=== PATIENT | female | born 1965 | race Two or more races ===

== ENCOUNTER 2017-11-30 00:33 | Emergency (ER) | payer OTHER ==
[~2017-11-30] VITALS: Ht 149.9 cm; Wt 95.7 kg
[2017-11-30] MEDS ORDERED: CYCL10TA9 PO (00:57)
--- NOTE | 2017-11-30 01:00 | NUR ---
DR. PADILLA AT BEDSIDE FOR MSE.
[2017-11-30 01:22] LABS: BASOPHILS # (AUTO) 0.1 K/uL (0.0-8.0); BASOPHILS % (AUTO) 0.8 % (0.0-2.0); EOSINOPHILS # (AUTO) 0.2 K/uL (0.0-0.7); EOSINOPHILS % (AUTO) 1.9 % (0.0-7.0); HEMATOCRIT 41.8 % (31.2-41.9); HEMOGLOBIN 14.4 g/dL (10.9-14.3); LYMPHOCYTES # (AUTO) 3.6 K/uL (20.0-40.0); LYMPHOCYTES % (AUTO) 37.3 % (20.5-51.5); MEAN CORPUSCULAR HEMOGLOBIN 28.7 uug (24.7-32.8); MEAN CORPUSCULAR HGB CONC 35 g/dL (32.3-35.6); MEAN CORPUSCULAR VOLUME 83.4 fL (75.5-95.3); MONOCYTES # (AUTO) 0.6 K/uL (2.0-10.0); MONOCYTES % (AUTO) 6.7 % (0.0-11.0); NEUTROPHILS # (AUTO) 5.1 K/uL (1.8-8.9); NEUTROPHILS % (AUTO) 53.3 % (38.5-71.5); PLATELET COUNT (AUTO) 231 K/uL (179-408); RED BLOOD CELL COUNT(AUTO) 5.01 MIL/uL (3.63-4.92); WHITE BLOOD COUNT (AUTO) 9.6 K/uL (3.8-11.8)
[2017-11-30 01:29] LABS: CREATININE 0.8 mg/dL (0.6-1.3); POTASSIUM 3.9 mmol/L (3.5-5.1)
[2017-11-30] MEDS ORDERED: KETOROLAC TROMETHAMINE 30 MG INJ ONE (03:03)
--- NOTE | 2017-11-30 03:07 | NUR ---
Patient discharged to home in stable conditon. Written and verbal after care instructions given. Patient verbalizes understanding of instructions. PATIENT LEFT WITH STABLE GAIT.
[2017-11-30 03:09] VITALS: BP 117/79
[2017-11-30] MEDS ORDERED: KETOROLAC TROMETHAMINE 30 MG INJ IM ONE (03:15)
== END 2017-11-30 03:09 | disposition home or self-care (01) ==
LOC: ER 00:47
DX: M54.6 Pain in thoracic spine (principal); R51 Headache; M54.2 Cervicalgia; Z88.0 Allergy status to penicillin
CPT/HCPCS: 36415; 71045; 80048; 84484; 85025; 85651; 93005; 96372; 99285; A4663; J1885; 70030-TC

== ENCOUNTER 2018-08-03 15:50 | Emergency (ER) | payer OTHER ==
[~2018-08-03] VITALS: Ht 149.9 cm; Wt 104.3 kg
[~2018-08-03 15:50] MED LIST: CYCL10TA9 PO
[2018-08-03 16:16] LABS: *BILIRUBIN,URIN NEGATIVE (NEGATIVE); *CLARITY,URINE CLEAR (CLEAR); *COLOR,URINE LIGHT YELLOW (YELLOW); *KETONES,URINE NEGATIVE (NEGATIVE); *URINE HCG, QUAL NEGATIVE (NEGATIVE); *UROBILINOGEN,URINE 0.2 E.U./dl (NORMAL); LEUKOCYTE ESTERASE ,URINE NEGATIVE (NEGATIVE); NITRITE, URINE NEGATIVE (NEGATIVE); UGLUCOSE NEGATIVE (NEGATIVE)
[2018-08-03 16:17] LABS: *BLOOD, URINE TRACE (NEGATIVE)
[2018-08-03 16:28] LABS: RBC,URINE 0-3 /HPF (0-3); SQUAMOUS EPITHELIAL CELL,UR MODERATE /HPF (NONE SEEN); WBC,URINE NONE SEEN /HPF (0-3)
[2018-08-03 17:04] LABS: BASOPHILS # (AUTO) 0.1 K/uL (0.0-8.0); BASOPHILS % (AUTO) 0.6 % (0.0-2.0); EOSINOPHILS # (AUTO) 0.4 K/uL (0.0-0.7); EOSINOPHILS % (AUTO) 3.9 % (0.0-7.0); HEMATOCRIT 41.7 % (31.2-41.9); HEMOGLOBIN 13.8 g/dL (10.9-14.3); LYMPHOCYTES # (AUTO) 2.5 K/uL (20.0-40.0); LYMPHOCYTES % (AUTO) 26.6 % (20.5-51.5); MEAN CORPUSCULAR HEMOGLOBIN 27.1 uug (24.7-32.8); MEAN CORPUSCULAR HGB CONC 33 g/dL (32.3-35.6); MONOCYTES # (AUTO) 0.6 K/uL (2.0-10.0); NEUTROPHILS # (AUTO) 5.7 K/uL (1.8-8.9); NEUTROPHILS % (AUTO) 61.9 % (38.5-71.5); PLATELET COUNT (AUTO) 217 K/uL (179-408); RED BLOOD CELL COUNT(AUTO) 5.09 MIL/uL (3.63-4.92); WHITE BLOOD COUNT (AUTO) 9.3 K/uL (3.8-11.8)
[2018-08-03 17:11] LABS: CREATININE 0.6 mg/dL (0.6-1.3)
[2018-08-03 17:17] LABS: BILIRUBIN,DIRECT 0.1 mg/dL (0.0-0.2); BILIRUBIN,TOTAL 0.4 mg/dL (0.2-1.0); TOTAL PROTEIN, SERUM 7.9 g/dL (6.4-8.2)
--- NOTE | 2018-08-03 18:46 | NUR ---
Patient discharged to home in stable conditon. Written and verbal after care instructions given. Patient verbalizes understanding of instructions.PT WALKS IN STADY GAIT. PT DID NOT REQUEST PAIN MED. PT ACCOMPANIED BY FAMILY MEMBER. COPY OF THE STUDIES PROVIDED FOR FOLLOW UP.
[2018-08-03 18:47] VITALS: BP 119/70
== END 2018-08-03 18:48 | disposition home or self-care (01) ==
LOC: ER 15:51
DX: G89.29 Other chronic pain (principal); R10.9 Unspecified abdominal pain; Z88.0 Allergy status to penicillin; Z79.899 Other long term (current) drug therapy
CPT/HCPCS: 36415; 70030-TC; 83690; 84703; 85025; 87077; 87086; A4663

== ENCOUNTER 2018-09-27 06:41 | Emergency (ER) | payer OTHER ==
[~2018-09-27] VITALS: Ht 149.9 cm; Wt 81.6 kg
--- NOTE | 2018-09-27 07:00 | NUR ---
ERMD at bedside for MSE
[2018-09-27] MEDS ORDERED: [UNRECOGNIZED DRUG - CODE] PO (07:01)
[2018-09-27] MEDS ORDERED: OMEP20CA4 PO (07:01)
--- NOTE | 2018-09-27 07:30 | NUR ---
Photograph Finisher assumes care- patient is for discharge per Dr Guaman. AOx4, calm & breathing easily, skin warm & dry. Patient discharged to home in stable conditon with steady gait. Written and verbal after care instructions given to patient. Patient verbalizes understanding and compliance of instructions.
== END 2018-09-27 07:54 | disposition home or self-care (01) ==
LOC: ER 06:44
DX: F41.9 Anxiety disorder, unspecified (principal); G47.00 Insomnia, unspecified; R22.1 Localized swelling, mass and lump, neck; K21.9 Gastro-esophageal reflux disease without esophagitis; Z88.0 Allergy status to penicillin; Z79.899 Other long term (current) drug therapy
CPT/HCPCS: 71045; 93005; A4663

== ENCOUNTER 2019-01-14 15:15 | Emergency (ER) | payer OTHER ==
[~2019-01-14] VITALS: Ht 149.9 cm; Wt 90.7 kg
[~2019-01-14 15:15] MED LIST changes: -CYCL10TA9 PO; +OMEP20CA4 PO; +[UNRECOGNIZED DRUG - CODE] PO
--- NOTE | 2019-01-14 15:48 | NUR ---
Patient discharged to home in stable conditon. Written and verbal after care instructions given. Patient verbalizes understanding of instructions.
== END 2019-01-14 15:48 | disposition home or self-care (01) ==
LOC: ER 15:17
DX: K11.20 Sialoadenitis, unspecified (principal); K21.9 Gastro-esophageal reflux disease without esophagitis; Z88.0 Allergy status to penicillin; Z79.1 Long term (current) use of non-steroidal anti-inflammatories (NSAID); Z79.899 Other long term (current) drug therapy
CPT/HCPCS: A4663

== ENCOUNTER 2020-08-21 15:06 | Emergency (ER) | payer OTHER ==
[~2020-08-21] VITALS: Ht 180.3 cm; Wt 95.3 kg
[2020-08-21] MEDS ORDERED: KETOROLAC TROMETHAMINE 30 MG INJ IM ONE (15:45)
[2020-08-21] MEDS ORDERED: IBUP-1955 PO (15:53)
[2020-08-21 15:54] LABS: *BILIRUBIN,URIN NEGATIVE (NEGATIVE); *BLOOD, URINE TRACE INTACT (NEGATIVE); *CLARITY,URINE CLEAR (CLEAR); *COLOR,URINE LIGHT YELLOW (YELLOW); *KETONES,URINE NEGATIVE (NEGATIVE); *UROBILINOGEN,URINE 0.2 E.U./dl (NORMAL); LEUKOCYTE ESTERASE ,URINE NEGATIVE (NEGATIVE); NITRITE, URINE NEGATIVE (NEGATIVE); UGLUCOSE NEGATIVE (NEGATIVE)
[2020-08-21] MEDS ORDERED: KETOROLAC TROMETHAMINE 30 MG INJ ONE (16:40)
== END 2020-08-21 17:47 | disposition home or self-care (01) ==
LOC: ER 15:06
DX: M54.5 Low back pain (principal); M10.9 Gout, unspecified; M48.061 Spinal stenosis, lumbar region without neurogenic claudication; K21.9 Gastro-esophageal reflux disease without esophagitis
CPT/HCPCS: 72131; 81003; 87086; 96372; 99284; J1885; A4663

== ENCOUNTER 2021-09-19 11:07 | Emergency (ER) | payer OTHER ==
[~2021-09-19] VITALS: Ht 149.9 cm; Wt 102.1 kg
[~2021-09-19 11:07] MED LIST changes: +IBUP-1955 PO
[2021-09-19] MEDS ORDERED: MAG HYDROX/AL HYDROX/SIMETH 30 ML LIQUID UDC ONE (11:28)
[2021-09-19] MEDS ORDERED: LIDOCAINE VISCUS 2% 15 ML UDC ONE (11:29)
[2021-09-19] MEDS ORDERED: MAG HYDROX/AL HYDROX/SIMETH 30 ML LIQUID UDC PO ONE (11:30)
[2021-09-19] MEDS ORDERED: LIDOCAINE VISCUS 2% 15 ML UDC MM ONE (11:30)
--- NOTE | 2021-09-19 11:32 | NUR ---
PT IS IN ROOM #3. DR AGUILAR EVALUATED THE PT.
--- NOTE | 2021-09-19 11:40 | NUR ---
Pt placed on gurney and connected to monitor. VSS, PERRLA, AAOx4, good distal pulses, good chiropractic doctor strength equal bilat, lungs ctab. EKG performed and shown to EDMD. GI cocktail ordered and administered by director of staff development Andre. No other orders at the moment.
[2021-09-19 12:16] LABS: CARBON DIOXIDE 28 mmol/L (21-32); CHLORIDE 106 mmol/L (98-107); CREATININE 0.7 mg/dL (0.6-1.3); GLUCOSE 111 mg/dL (74-106); POTASSIUM 4.3 mmol/L (3.5-5.1); UREA NITROGEN, BLOOD 18 mg/dL (7-18)
[2021-09-19 12:20] LABS: MEAN CORPUSCULAR HEMOGLOBIN 27.4 uug (24.7-32.8); MEAN CORPUSCULAR VOLUME 82.2 fL (75.5-95.3); PLATELET COUNT (AUTO) 223 K/uL (179-408)
--- NOTE | 2021-09-19 13:34 | NUR ---
Pt given dc instructions by myself, the EDMD and the student RN, pt acknowledged understanding, all questions answered, some education provided about diet and exersize. Pt very happy with service. Pt signed out and ambulated out of dept with steady gait. denies any sob, n/v, dizziness, but does still feel a little bit of mild pain.
[2021-09-19 13:48] VITALS: BP 110/75
== END 2021-09-19 13:15 | disposition home or self-care (01) ==
LOC: ER 11:08
DX: R07.89 Other chest pain (principal); R94.31 Abnormal electrocardiogram [ECG] [EKG]; E89.0 Postprocedural hypothyroidism; Z90.49 Acquired absence of other specified parts of digestive tract; K21.9 Gastro-esophageal reflux disease without esophagitis; M10.9 Gout, unspecified; Z87.11 Personal history of peptic ulcer disease; E66.9 Obesity, unspecified; Z68.42 Body mass index [BMI] 45.0-49.9, adult; I10 Essential (primary) hypertension; Z86.16 Personal history of COVID-19
CPT/HCPCS: 36415; 71045; 84484; 85025; 93005; A4663

== ENCOUNTER → 2022-07-02 | Emergency (ER) | payer OTHER ==
[~2022-07-02] VITALS: Ht 149.9 cm; Wt 92.1 kg
[~2022-07-02] MED LIST changes: +HYDROMORPHONE 1 MG/1 ML DISP.SYRIN IM ONE; +HYDROMORPHONE 1 MG/1 ML DISP.SYRIN ONE; +LORAZEPAM 0.5 MG TABLET PO ONE; +LORAZEPAM 1 MG TABLET ONE; +ONDANSETRON ODT 4 MG TAB.RAPDIS ONE; +ONDANSETRON ODT 4 MG TAB.RAPDIS SL ONE; +OXYC-128 PO
--- NOTE | 2022-07-02 03:00 | NUR ---
Dr. Meneses evaluated patient at bedside. MSE in progress.
--- NOTE | 2022-07-02 04:08 | NUR ---
Patient taken to Xray via wheelchair accompanied by richy.
--- NOTE | 2022-07-02 06:10 | NUR ---
Patient c/o anxiety and nervousness. Dr. Meneses aware. Lorazepam 1mg PO ordered per Dr. Meneses
[2022-07-02 06:36] VITALS: BP 110/75
--- NOTE | 2022-07-02 06:36 | NUR ---
Patient discharged to home in stable condition. Written and verbal after care instructions given. Patient verbalizes understanding of instructions. Stressed follow up or return to ER for worsening s/s. Instructed patient not to drive.
== END | disposition home or self-care (01) ==
LOC: ER 02:46
DX: S30.0XXA Contusion of lower back and pelvis, initial encounter (principal); K21.9 Gastro-esophageal reflux disease without esophagitis; M10.9 Gout, unspecified; Z88.0 Allergy status to penicillin; Z79.1 Long term (current) use of non-steroidal anti-inflammatories (NSAID); Z79.899 Other long term (current) drug therapy; W18.39XA Other fall on same level, initial encounter; Y93.89 Activity, other specified; Y92.89 Other specified places as the place of occurrence of the external cause; Y99.8 Other external cause status
CPT/HCPCS: 99285; 72131; 96372; J1170; A4663; Q0162

== ENCOUNTER 2022-09-12 05:20 | Emergency (ER) | payer OTHER ==
[~2022-09-12] VITALS: Ht 149.9 cm; Wt 91.2 kg
[~2022-09-12 05:20] MED LIST changes: -HYDROMORPHONE 1 MG/1 ML DISP.SYRIN IM ONE; -HYDROMORPHONE 1 MG/1 ML DISP.SYRIN ONE; -LORAZEPAM 0.5 MG TABLET PO ONE; -LORAZEPAM 1 MG TABLET ONE; -ONDANSETRON ODT 4 MG TAB.RAPDIS ONE; -ONDANSETRON ODT 4 MG TAB.RAPDIS SL ONE
--- NOTE | 2022-09-12 05:40 | NUR ---
PT AMB TO 1A WITH C/O ABD PAIN.
--- NOTE | 2022-09-12 05:40 | NUR ---
PT AMB TO [facility] WITH C/O ABD PAIN, 11/06 WITH NO N/V.
--- NOTE | 2022-09-12 05:59 | NUR ---
MD AT BEDSIDE PREFPRMING RETAL EXAM/ GUIAC EXAM. PT AMB TO BR, URINE COLLECTED/SENT TO LAB.
[2022-09-12] MEDS ORDERED: HYDROMORPHONE 1 MG/1 ML DISP.SYRIN IV ONE (06:00)
[2022-09-12] MEDS ORDERED: ONDANSETRON 4 MG/2 ML VIAL IV ONE (06:00)
[2022-09-12] MEDS ORDERED: ONDANSETRON 4 MG/2 ML VIAL ONE (06:04)
[2022-09-12] MEDS ORDERED: HYDROMORPHONE 1 MG/1 ML DISP.SYRIN ONE (06:05)
--- NOTE | 2022-09-12 06:10 | NUR ---
LAB AT BEDSIDE DRAWING BLOOD.
[2022-09-12 06:12] LABS: MEAN CORPUSCULAR HEMOGLOBIN 27.7 uug (24.7-32.8); MEAN CORPUSCULAR VOLUME 82.5 fL (75.5-95.3); PLATELET COUNT (AUTO) 203 K/uL (179-408)
[2022-09-12 06:15] LABS: *BILIRUBIN,URIN NEGATIVE (NEGATIVE); *CLARITY,URINE CLEAR (CLEAR); *COLOR,URINE YELLOW (YELLOW); *KETONES,URINE NEGATIVE (NEGATIVE); *UROBILINOGEN,URINE 0.2 E.U./dl (NORMAL); LEUKOCYTE ESTERASE ,URINE NEGATIVE (NEGATIVE); NITRITE, URINE NEGATIVE (NEGATIVE); PH,URINE 6.5 (5.0-8.0); UGLUCOSE NEGATIVE (NEGATIVE)
[2022-09-12 06:26] LABS: BILIRUBIN,TOTAL 0.3 mg/dL (0.2-1.0); CREATININE 0.9 mg/dL (0.6-1.3); POTASSIUM 3.9 mmol/L (3.5-5.1); TOTAL PROTEIN, SERUM 8.2 g/dL (6.4-8.2)
[2022-09-12 06:35] LABS: *OCCULT BLOOD STOOL NEGATIVE (NEGATIVE)
[2022-09-12 06:36] LABS: *BLOOD, URINE TRACE (NEGATIVE)
--- NOTE | 2022-09-12 07:06 | NUR ---
REPORT GIVEN TO BRYSON MARKS.
--- NOTE | 2022-09-12 07:10 | NUR ---
Dr Sneed at the bedside discussing plan of care w/ pt and pt's .
--- NOTE | 2022-09-12 07:30 | NUR ---
Pt signed consent for IV contrasted Ct scan, placed in the chart.
[2022-09-12 07:59] LABS: BACTERIA,URINE NONE SEEN /HPF (NONE SEEN); RBC,URINE 0-3 /HPF (0-3); WBC,URINE NONE SEEN /HPF (0-3)
[2022-09-12 08:00] LABS: SQUAMOUS EPITHELIAL CELL,UR FEW /HPF (NONE SEEN)
[2022-09-12] MEDS ORDERED: IV NORMAL SALINE 250 ML IV ONE (08:38)
[2022-09-12] MEDS ORDERED: SWABABLE VALVE TRANSFER SET EA MC ONE (08:38)
[2022-09-12] MEDS ORDERED: IOHEXOL 350 100 ML INFUS..BTL ONE (08:38)
--- NOTE | 2022-09-12 08:50 | NUR ---
Pt out of ER for Ct scan.
--- NOTE | 2022-09-12 09:00 | NUR ---
Pt is back from Ct scan, no c/o pain, Continue monitoring.
[2022-09-12] MEDS ORDERED: FAMO40TA7 PO (09:59)
[2022-09-12] MEDS ORDERED: SUCR1ORA PO (09:59)
[2022-09-12 10:09] VITALS: BP 101/59; O2SAT 99
--- NOTE | 2022-09-12 10:10 | NUR ---
Patient discharged to home in stable condition. Written and verbal after care instructions given. Patient verbalizes understanding of instructions. Stressed follow up or return to ER for worsening s/s.
--- NOTE | 2022-09-12 10:10 | NUR ---
IV removed. Catheter intact and site benign. Pressure and 4x4 gauze applied to site. No bleeding noted.
== END 2022-09-12 10:10 | disposition home or self-care (01) ==
LOC: ER 05:29
DX: R07.89 Other chest pain (principal); R10.13 Epigastric pain; K92.1 Melena; M10.9 Gout, unspecified; K21.9 Gastro-esophageal reflux disease without esophagitis; Z90.49 Acquired absence of other specified parts of digestive tract; Z88.0 Allergy status to penicillin; Z79.1 Long term (current) use of non-steroidal anti-inflammatories (NSAID); Z79.899 Other long term (current) drug therapy
CPT/HCPCS: 99285; 96374; 71275; 96375; 82270; 80053; 81001; 83690; 85025; 85379; 84484 ×2; 36415; J2405; Q9967; J1170; A4663

== ENCOUNTER 2022-09-21 04:55 | Emergency (ER) | payer OTHER ==
[~2022-09-21] VITALS: Ht 149.9 cm; Wt 90.7 kg
[~2022-09-21 04:55] MED LIST changes: +FAMO40TA7 PO; +SUCR1ORA PO
[2022-09-21 05:16] VITALS: O2SAT 100
--- NOTE | 2022-09-21 05:34 | NUR ---
Dr. Alanis at bedside, MSE in progress.
[2022-09-21 06:07] LABS: HEMATOCRIT 41.5 % (31.2-41.9); MEAN CORPUSCULAR HEMOGLOBIN 27.8 uug (24.7-32.8); MEAN CORPUSCULAR VOLUME 83.2 fL (75.5-95.3); PLATELET COUNT (AUTO) 195 K/uL (179-408)
[2022-09-21 06:13] LABS: CARBON DIOXIDE 27 mmol/L (21-32); CHLORIDE 105 mmol/L (98-107); CREATININE 0.9 mg/dL (0.6-1.3); POTASSIUM 3.8 mmol/L (3.5-5.1); UREA NITROGEN, BLOOD 15 mg/dL (7-18)
[2022-09-21] MEDS ORDERED: FAMOTIDINE. 20 MG/2 ML VIAL IV ONE ×2 (06:15→06:31)
[2022-09-21 06:22] LABS: ALANINE AMINOTRANSFERASE 16 U/L (14-59); ALKALINE PHOSPHATASE 119 U/L (50-136); ASPARTATE AMINOTRANSFERASE 7 U/L (15-37); BILIRUBIN,DIRECT 0.1 mg/dL (0.0-0.2); BILIRUBIN,TOTAL 0.4 mg/dL (0.2-1.0); LIPASE 50 U/L (73-393); TOTAL PROTEIN, SERUM 7.8 g/dL (6.4-8.2)
[2022-09-21] MEDS ORDERED: KETOROLAC TROMETHAMINE 15 MG INJ IVP ONE (06:30)
[2022-09-21] MEDS ORDERED: KETOROLAC TROMETHAMINE 15 MG INJ ONE (06:31)
--- NOTE | 2022-09-21 07:45 | NUR ---
IV was removed. Gave pt referral and d/c instructions, pt verbalized understanding.
== END 2022-09-21 07:50 | disposition home or self-care (01) ==
LOC: ER 04:58
DX: R10.13 Epigastric pain (principal); R11.0 Nausea; K21.9 Gastro-esophageal reflux disease without esophagitis; Z90.49 Acquired absence of other specified parts of digestive tract; Z88.0 Allergy status to penicillin; Z79.1 Long term (current) use of non-steroidal anti-inflammatories (NSAID); Z79.899 Other long term (current) drug therapy
CPT/HCPCS: 99285; 74176; 96374; 80076; 80048; 83690; 85025; 84484; 36415; 93005; J1885; A4663; J3490

== ENCOUNTER 2022-09-28 11:10 | Emergency (ER) | payer OTHER ==
[~2022-09-28] VITALS: Ht 149.9 cm; Wt 89.8 kg
--- NOTE | 2022-09-28 11:30 | NUR ---
seen and examined by
[2022-09-28 11:50] LABS: HEMATOCRIT 39.6 % (31.2-41.9); MEAN CORPUSCULAR HEMOGLOBIN 27.3 uug (24.7-32.8); MEAN CORPUSCULAR VOLUME 83.1 fL (75.5-95.3); PLATELET COUNT (AUTO) 184 K/uL (179-408)
--- NOTE | 2022-09-28 11:55 | NUR ---
IV inserted on R AC 20 g, labs collected and sent to lab
[2022-09-28 12:04] LABS: ALANINE AMINOTRANSFERASE 16 U/L (14-59); ALKALINE PHOSPHATASE 106 U/L (50-136); ASPARTATE AMINOTRANSFERASE 6 U/L (15-37); BILIRUBIN,DIRECT 0.1 mg/dL (0.0-0.2); BILIRUBIN,TOTAL 0.5 mg/dL (0.2-1.0); CARBON DIOXIDE 27 mmol/L (21-32); CHLORIDE 107 mmol/L (98-107); CREATININE 0.8 mg/dL (0.6-1.3); POTASSIUM 3.7 mmol/L (3.5-5.1); TOTAL PROTEIN, SERUM 7.3 g/dL (6.4-8.2); UREA NITROGEN, BLOOD 19 mg/dL (7-18)
[2022-09-28 12:55] VITALS: BP 122/80; TEMP 98; O2SAT 99
== END 2022-09-28 12:56 | disposition home or self-care (01) ==
LOC: ER 11:10
DX: R07.89 Other chest pain (principal); K21.9 Gastro-esophageal reflux disease without esophagitis; Z90.49 Acquired absence of other specified parts of digestive tract; Z88.0 Allergy status to penicillin; Z79.899 Other long term (current) drug therapy; Z79.1 Long term (current) use of non-steroidal anti-inflammatories (NSAID)
CPT/HCPCS: 36415; 71045; 84484; 85025; 93005; A4663

== ENCOUNTER 2022-11-02 20:58 | Emergency (ER) | payer OTHER ==
[~2022-11-02] VITALS: Ht 149.9 cm; Wt 85.7 kg
[2022-11-03 00:03] LABS: CALCIUM 8.6 mg/dL (8.5-10.1); CARBON DIOXIDE 29 mmol/L (21-32); CHLORIDE 104 mmol/L (98-107); CREATININE 0.9 mg/dL (0.6-1.3); GLUCOSE 98 mg/dL (74-106); POTASSIUM 3.6 mmol/L (3.5-5.1); SODIUM SERUM 142 mmol/L (136-145); UREA NITROGEN, BLOOD 17 mg/dL (7-18)
[2022-11-03 00:04] LABS: DIFFERENTIAL COMMENT 1; EOSINOPHILS # (AUTO) 1.8 K/uL (0.0-0.7); EOSINOPHILS % (AUTO) 23.7 % (0.0-7.0); HEMATOCRIT 40.1 % (31.2-41.9); HEMOGLOBIN 13.4 g/dL (10.9-14.3); LYMPHOCYTES # (AUTO) 1.9 K/uL (0.8-4.8); LYMPHOCYTES % (AUTO) 25.1 % (20.5-51.5); MEAN CORPUSCULAR HEMOGLOBIN 27.9 uug (24.7-32.8); MEAN CORPUSCULAR HGB CONC 33 g/dL (32.3-35.6); MEAN CORPUSCULAR VOLUME 83.4 fL (75.5-95.3); MONOCYTES # (AUTO) 0.3 K/uL (0.1-1.30); MONOCYTES % (AUTO) 3.3 % (0.0-11.0); NEUTROPHILS # (AUTO) 3.7 K/uL (1.8-8.9); NEUTROPHILS % (AUTO) 47.9 % (38.5-71.5); PLATELET COUNT (AUTO) 189 K/uL (179-408); RED CELL DISTRIBUTION WIDTH 14.4 % (12.3-17.7); WHITE BLOOD COUNT (AUTO) 7.7 K/uL (3.8-11.8)
[2022-11-03 00:11] LABS: *OCCULT BLOOD STOOL NEGATIVE (NEGATIVE)
[2022-11-03 00:15] LABS: ALANINE AMINOTRANSFERASE 23 U/L (14-59); ALBUMIN 3.5 g/dL (3.4-5.0); ALKALINE PHOSPHATASE 130 U/L (50-136); ASPARTATE AMINOTRANSFERASE 9 U/L (15-37); BILIRUBIN,DIRECT 0.1 mg/dL (0.0-0.2); BILIRUBIN,TOTAL 0.3 mg/dL (0.2-1.0); TOTAL PROTEIN, SERUM 7.3 g/dL (6.4-8.2)
[2022-11-03 01:42] LABS: BAND % (MANUAL) 2 % (0-10); LYMPHOCYTES % (MANUAL) 30 % (20-40)
[2022-11-03 01:43] LABS: EOSINOPHILS % (MANUAL) 12 % (0-8); MONOCYTES % (MANUAL) 4 % (2-10); NEUTROPHILS % (MANUAL) 52 % (42-75)
[2022-11-03 01:44] LABS: PLATELET ESTIMATE ADEQUATE
[2022-11-03 01:51] LABS: *BILIRUBIN,URIN NEGATIVE (NEGATIVE); *CLARITY,URINE CLEAR (CLEAR); *COLOR,URINE YELLOW (YELLOW); *KETONES,URINE 1+ (NEGATIVE); *PROTEIN,URINE NEGATIVE (NEGATIVE); *UROBILINOGEN,URINE 0.2 E.U./dl (NORMAL); LEUKOCYTE ESTERASE ,URINE TRACE (NEGATIVE); NITRITE, URINE NEGATIVE (NEGATIVE); PH,URINE 5.5 (5.0-8.0); UGLUCOSE NEGATIVE (NEGATIVE)
[2022-11-03 01:53] LABS: *BLOOD, URINE TRACE (NEGATIVE)
[2022-11-03 02:15] LABS: BACTERIA,URINE FEW /HPF (NONE SEEN); SQUAMOUS EPITHELIAL CELL,UR MANY /HPF (NONE SEEN)
[2022-11-03] MEDS ORDERED: FAMO10TA41 PO (03:09)
[2022-11-03 03:17] VITALS: BP 121/74; TEMP 98; O2SAT 99
== END 2022-11-03 03:17 | disposition home or self-care (01) ==
LOC: ER 21:01
DX: K62.5 Hemorrhage of anus and rectum (principal); K21.9 Gastro-esophageal reflux disease without esophagitis; Z90.49 Acquired absence of other specified parts of digestive tract; Z79.899 Other long term (current) drug therapy
CPT/HCPCS: 36415; 70030-TC; 84484; 85025; 85730; 86850; 86900; 86901; 93005; A4663

== ENCOUNTER 2022-11-22 21:16 | Emergency (ER) | payer OTHER ==
[~2022-11-22] VITALS: Ht 149.9 cm; Wt 85.3 kg
[~2022-11-22 21:16] MED LIST changes: +FAMO10TA41 PO
[2022-11-22] MEDS ORDERED: FAMOTIDINE 20 MG TABLET ONE (23:22)
[2022-11-22] MEDS ORDERED: SIMETHICONE 80 MG TAB.CHEW ONE (23:23)
[2022-11-22] MEDS ORDERED: KETOROLAC TROMETHAMINE 30 MG INJ ONE (23:23)
[2022-11-22] MEDS ORDERED: METOCLOPRAMIDE HCL 10 MG TABLET ONE (23:23)
[2022-11-22] MEDS ORDERED: FAMOTIDINE 20 MG TABLET PO ONE (23:30)
[2022-11-22] MEDS ORDERED: METOCLOPRAMIDE HCL 10 MG TABLET PO ONE (23:30)
[2022-11-22] MEDS ORDERED: SIMETHICONE 80 MG TAB.CHEW PO ONE (23:30)
[2022-11-22] MEDS ORDERED: KETOROLAC TROMETHAMINE 30 MG INJ IM ONE (23:30)
[2022-11-22 23:42] LABS: BASOPHILS # (AUTO) 0.1 K/UL (0.0-0.2); BASOPHILS % (AUTO) 0.6 % (0.0-2.0); EOSINOPHILS # (AUTO) 0.1 K/uL (0.0-0.7); EOSINOPHILS % (AUTO) 1.6 % (0.0-7.0); HEMATOCRIT 42.3 % (31.2-41.9); LYMPHOCYTES # (AUTO) 2.7 K/uL (0.8-4.8); LYMPHOCYTES % (AUTO) 28.5 % (20.5-51.5); MEAN CORPUSCULAR HEMOGLOBIN 27.8 uug (24.7-32.8); MEAN CORPUSCULAR HGB CONC 33 g/dL (32.3-35.6); MONOCYTES # (AUTO) 0.5 K/uL (0.1-1.30); NEUTROPHILS # (AUTO) 6.1 K/uL (1.8-8.9); NEUTROPHILS % (AUTO) 64.3 % (38.5-71.5); PLATELET COUNT (AUTO) 202 K/uL (179-408); RED BLOOD CELL COUNT(AUTO) 5.04 MIL/uL (3.63-4.92); RED CELL DISTRIBUTION WIDTH 14.6 % (12.3-17.7); WHITE BLOOD COUNT (AUTO) 9.4 K/uL (3.8-11.8)
[2022-11-22 23:45] LABS: CALCIUM 9.6 mg/dL (8.5-10.1); CREATININE 0.9 mg/dL (0.6-1.3); POTASSIUM 3.8 mmol/L (3.5-5.1)
[2022-11-22 23:49] LABS: *BILIRUBIN,URIN NEGATIVE (NEGATIVE); *CLARITY,URINE CLEAR (CLEAR); *COLOR,URINE YELLOW (YELLOW); *KETONES,URINE 2+ (NEGATIVE); *PROTEIN,URINE NEGATIVE (NEGATIVE); *UROBILINOGEN,URINE 0.2 E.U./dl (NORMAL); LEUKOCYTE ESTERASE ,URINE NEGATIVE (NEGATIVE); NITRITE, URINE NEGATIVE (NEGATIVE); PH,URINE 5.5 (5.0-8.0); UGLUCOSE NEGATIVE (NEGATIVE)
[2022-11-22 23:51] LABS: ALBUMIN 3.5 g/dL (3.4-5.0); BILIRUBIN,DIRECT 0.1 mg/dL (0.0-0.2); BILIRUBIN,TOTAL 0.2 mg/dL (0.2-1.0); TOTAL PROTEIN, SERUM 7.6 g/dL (6.4-8.2)
[2022-11-22 23:57] LABS: *BLOOD, URINE NEGATIVE (NEGATIVE)
[2022-11-23 00:13] LABS: BACTERIA,URINE NONE SEEN /HPF (NONE SEEN); SQUAMOUS EPITHELIAL CELL,UR FEW /HPF (NONE SEEN); WBC,URINE 0-3 /HPF (0-3)
[2022-11-23 00:55] LABS: *OCCULT BLOOD STOOL NEGATIVE (NEGATIVE)
[2022-11-23] MEDS ORDERED: POLY17PO4 PO (03:23)
[2022-11-23 03:29] VITALS: BP 112/68; TEMP 98.5; O2SAT 99
== END 2022-11-23 03:29 | disposition home or self-care (01) ==
LOC: ER 21:18
DX: G89.29 Other chronic pain (principal); R10.84 Generalized abdominal pain; K59.00 Constipation, unspecified; K58.9 Irritable bowel syndrome, unspecified; F41.9 Anxiety disorder, unspecified; K21.9 Gastro-esophageal reflux disease without esophagitis; Z90.49 Acquired absence of other specified parts of digestive tract; Z88.0 Allergy status to penicillin; Z79.1 Long term (current) use of non-steroidal anti-inflammatories (NSAID); Z79.899 Other long term (current) drug therapy
CPT/HCPCS: 99285; 82270; 80076; 80048; 81001; 83690; 85025; 85730; 36415 ×2; 96372; 83605; 74176; 84443; J1885; A4663; J8597

== ENCOUNTER 2023-02-28 18:34 | Emergency (ER) | payer OTHER ==
[~2023-02-28] VITALS: Ht 149.9 cm; Wt 82.6 kg
[~2023-02-28 18:34] MED LIST changes: +ONDA4TAB11 PO; +POLY17PO4 PO; +SENN8.6T19 PO
[2023-02-28] MEDS ORDERED: HYDROMORPHONE 1 MG/1 ML DISP.SYRIN IM ONE (19:15)
[2023-02-28] MEDS ORDERED: CYCLOBENZAPRINE HCL 10 MG TABLET PO ONE (19:15)
[2023-02-28] MEDS ORDERED: ONDANSETRON ODT 4 MG TAB.RAPDIS SL ONE (19:15)
[2023-02-28] MEDS ORDERED: ONDANSETRON ODT 4 MG TAB.RAPDIS ONE (19:24)
[2023-02-28] MEDS ORDERED: CYCLOBENZAPRINE HCL 10 MG TABLET ONE (19:24)
[2023-02-28] MEDS ORDERED: HYDROMORPHONE 1 MG/1 ML DISP.SYRIN ONE (19:25)
[2023-02-28] MEDS ORDERED: ONDA4TAB5 PO (20:13)
[2023-02-28] MEDS ORDERED: CYCL10TA9 PO (20:13)
[2023-02-28] MEDS ORDERED: HYDR2TAB7 PO (20:13)
[2023-02-28 20:26] VITALS: BP 115/76; O2SAT 98
== END 2023-02-28 20:26 | disposition home or self-care (01) ==
LOC: ER 18:41
DX: G89.29 Other chronic pain (principal); M54.50 Low back pain, unspecified; K21.9 Gastro-esophageal reflux disease without esophagitis; F41.9 Anxiety disorder, unspecified; E66.9 Obesity, unspecified; Z90.49 Acquired absence of other specified parts of digestive tract; Z79.899 Other long term (current) drug therapy; Z88.0 Allergy status to penicillin
CPT/HCPCS: 99283; 96372; J1170; A4606; A4663; Q0162